=== PATIENT | male | born 1960 | race African-American/Black ===

== ENCOUNTER 2016-08-31 20:00 | Emergency (ER) | payer OTHER ==
[~2016-08-31] VITALS: Ht 177.8 cm; Wt 85.7 kg
[2016-08-31] MEDS ORDERED: HIVPAK PO (20:11)
[2016-08-31] MEDS ORDERED: LIDOCAINE 1% MDV 20ML VIAL IM ONE (21:00)
[2016-08-31] MEDS ORDERED: ACETAMINOPHEN 325 MG TAB PO ONE (21:45)
[2016-08-31] MEDS ORDERED: AUGMENTIN 875 MG TAB PO ONE (21:45)
--- NOTE | 2016-08-31 21:50 | REPUSA ---
CT of the cervical spine Clinical history: Pain. Technique: Multiple axial CT images were obtained through the cervical spine without administration o f contrast. Coronal and sagittal 3-D reconstructed images were also obtained. Comparison: None. Findings: The cervical vertebral bodies are in satisfactory positioning and alignment. No fractures or dislocat ions are demonstrated. The odontoid process is intact. There is moderate degenerative disc disease no nikolay at C6/C7. Intervertebral disc spaces are otherwise well-maintained. There is no evidence of facet subluxation. The neural foramen appear grossly patent. The cervical cranial junction is intact. The cervical spinal canal demonstrates normal caliber and contour without evidence of spinal stenosis. Th e surrounding soft tissues are within normal limits. Impression: No acute osseous abnormality. Moderate degenerative disc disease at C6/C7.
--- NOTE | 2016-08-31 21:50 | REPUSA ---
CT of the head Clinical history: trauma. Technique: Multiple axial CT images were obtained through the head without administration of contrast . Findings: The ventricles and sulci are symmetric bilaterally. There is no evidence of acute hemorrhag e or infarct. There is no midline shift, mass effect, or extra-axial fluid collection. The osseous st ructures are unremarkable. The visualized paranasal sinuses and mastoid air cells are clear. Impression: Negative study.
--- NOTE | 2016-08-31 21:50 | REPUSA ---
CT of the facial bones without contrast Clinical history: Pain, injury. Technique: Multiple axial CT images were obtained through the facial bones and paranasal sinuses util izing 3 mm axial slices without administration of contrast. Coronal and sagittal reconstructions were also obtained. Findings: The visualized paranasal sinuses are clear, Other than a small mucus retention cyst in the inferior right maxillary sinus. The osteomeatal complexes are patent bilaterally. The nasal septum is midline. The visualized mastoid air cells are clear. The osseous structures do not demonstrate any a cute abnormalities. The superficial soft tissues are swollen in the premental region, with subcutan eous emphysema seen in the left anterior mandibular region. Impression: 1. Focal superficial soft tissue swelling in the premental region bilaterally, with subcutaneous emp hysema demonstrating the left anterior mandibular region. 2. No acute fractures. 3.. Tiny mucus retention cyst in the right maxillary sinus.
[2016-08-31 22:27] VITALS: BP 140/85
[2016-08-31] MEDS ORDERED: AUGM875T27 PO (22:34)
== END 2016-08-31 22:46 | disposition home or self-care (01) ==
LOC: M ED 20:57
DX: S01.511A Laceration without foreign body of lip, initial encounter (principal); S00.93XA Contusion of unspecified part of head, initial encounter; W22.8XXA Striking against or struck by other objects, initial encounter; Y92.149 Unspecified place in prison as the place of occurrence of the external cause; Y93.9 Activity, unspecified; Y99.9 Unspecified external cause status; B20 Human immunodeficiency virus [HIV] disease; Z79.899 Other long term (current) drug therapy; Z88.1 Allergy status to other antibiotic agents